=== PATIENT | female | born 1975 | race Caucasian/White ===

== ENCOUNTER 2017-11-20 07:47 | Outpatient (CLI) | payer BC | END 2017-11-20 07:48 | disposition home or self-care (01) | LOC: BICMAMMO 07:47 | PROVIDERS: ATTEND Advanced Practice Midwife | DX: Z12.31 Encounter for screening mammogram for malignant neoplasm of breast (principal) | CPT/HCPCS: 77063; 77067 ==

== ENCOUNTER 2018-12-12 06:37 | Outpatient (CLI) | payer BC ==
--- NOTE | 2018-12-12 09:03 | ULT ---
LEFT BREAST ULTRASOUND: HISTORY: Abnormal screening mammogram of 12/06/2018 from an outside institution. FINDINGS: There is a 1.2 x 0.4 x 0.9 cm, reniform, hypoechoic, nonshadowing nodule with echogenic hilum, about 8 cm from the nipple, corresponding to the finding on the mammogram. No definite flow is demonstrate d in the hilum. This likely represents a lymph node. IMPRESSION: BI-RADS category 3-Probably benign finding. Six month follow-up left diagnostic mammogram and left b reast ultrasound should be performed. POS: OFF
== END 2018-12-12 06:38 | disposition home or self-care (01) ==
LOC: BICULT 06:37
PROVIDERS: ATTEND Advanced Practice Midwife
DX: N63.20 Unspecified lump in the left breast, unspecified quadrant (principal)

== ENCOUNTER 2019-06-12 07:56 | Outpatient (CLI) | payer BC ==
--- NOTE | 2019-06-12 08:47 | MMO ---
Left Breast MAMMO Unilat Diag [facility]DI LT+JUAN. CLINICAL HISTORY: Patient is 43 years old and is seen for follow-up at short-interval from prior study. The patient has no family history of breast cancer. The patient has no personal history of cancer. VIEWS: The views performed were: left craniocaudal with tomosynthesis; left mediolateral oblique with tomosynthesis; and left mediolateral with tomosynthesis. FILMS COMPARED: The present examination has been compared to prior imaging studies performed at [facility] on 12/06/2018, and at [facility] on 11/20/2017, 12/12/2018 and 06/12/2019. This study has been interpreted with the assistance of computer-aided detection. MAMMOGRAM FINDINGS: The breast is heterogeneously dense, which could obscure a lesion on mammography. Left upper outer breast nodule is stable. IMPRESSION: FINDING IN THE LEFT BREAST IS PROBABLY BENIGN. FOLLOW-UP IN 6 MONTHS IS RECOMMENDED. THE RESULTS OF THIS EXAM WERE SENT TO THE PATIENT. ACR BI-RADS Category 3 - Probably benign finding - short interval follow-up suggested. [facility] will notify the patient of the need for additional imaging services. MAMMOGRAPHY NOTE: 1. A negative mammogram report should not delay a biopsy if a dominant of clinically suspicious mass is present. 2. Approximately 10% to 15% of breast cancers are not detected by mammography. 3. Adenosis and dense breasts may obscure an underlying neoplasm. Reported by: GALINA STEVE MD Electonically Signed: [id number]
--- NOTE | 2019-06-12 09:16 | ULT ---
LEFT BREAST ULTRASOUND: Date: 06/12/2019 HISTORY: Follow-up left breast mass. FINDINGS: Comparison made with the left breast ultrasound of 12/12/2018 and the mammograms from today. The 1.3 x 0.4 x 0.8 cm reniform, hypoechoic, nonshadowing nodule with echogenic hilum about 8 cm from the nipple, corresponding to the finding on the mammogram, is stable. No definite flow is seen in th e hilum. This likely represents a lymph node. IMPRESSION: BI-RADS Category 3 - Probably benign findings. 6 month follow-up left diagnostic mammogram and left b reast ultrasound should be performed. The facility will notify patient of need for additional imaging services.
== END 2019-06-12 07:57 | disposition home or self-care (01) ==
LOC: BICMAMMO 07:56
PROVIDERS: ATTEND Advanced Practice Midwife
DX: R92.8 Other abnormal and inconclusive findings on diagnostic imaging of breast (principal)
CPT/HCPCS: G0279

== ENCOUNTER 2020-03-05 08:06 | Outpatient (CLI) | payer BC ==
--- NOTE | 2020-03-05 09:11 | MMO ---
Bilateral MAMMO Bilat Diag DDI+JUAN. CLINICAL HISTORY: Patient is 44 years old and is seen for diagnostic exam. The patient has no family history of breast cancer. The patient has no personal history of cancer. VIEWS: The views performed were: bilateral craniocaudal with tomosynthesis; bilateral mediolateral oblique with tomosynthesis; and bilateral mediolateral with tomosynthesis. FILMS COMPARED: The present examination has been compared to prior imaging studies performed at [facility] on 12/12/2018, 06/12/2019 and 03/05/2020. This study has been interpreted with the assistance of computer-aided detection. MAMMOGRAM FINDINGS: The breasts are heterogeneously dense, which could obscure a lesion on mammography. Finding 1: There is a stable lobular mass measuring 8 x 19 x 16 mm with circumscribed margins and associated milk of calcium calcifications seen in the posterior upper-outer region of the right breast. Finding 2: There are stable benign appearing calcifications seen in both breasts. Finding 3: There are stable benign appearing densities seen in both breasts. There are no suspicious masses, suspicious calcifications, or new areas of architectural distortion. IMPRESSION: THERE IS NO MAMMOGRAPHIC EVIDENCE OF MALIGNANCY. A ROUTINE FOLLOW-UP MAMMOGRAM IN 1 YEAR IS RECOMMENDED. THE RESULTS OF THIS EXAM WERE SENT TO THE PATIENT. ACR BI-RADS Category 2 - Benign finding MAMMOGRAPHY NOTE: 1. A negative mammogram report should not delay a biopsy if a dominant of clinically suspicious mass is present. 2. Approximately 10% to 15% of breast cancers are not detected by mammography. 3. Adenosis and dense breasts may obscure an underlying neoplasm. Reported by: SHAYLEE ADAMES MD Electonically Signed: [id number]
--- NOTE | 2020-03-05 11:04 | ULT ---
LEFT BREAST ULTRASOUND: Date: 03/05/2020 HISTORY: Follow-up nodular area in the left breast upper outer aspect. COMPARISON: Prior ultrasound examinations 12/02/2018 and 06/12/2019. Diagnostic mammogram today, 03/05/2020. FINDINGS: There is a somewhat bilobed, hypoechoic mass in the upper outer aspect of the left breast at 2 o'cloc k position 8.0 cm from the nipple. This is a somewhat bilobed hypoechoic mass which could represent a complicated cyst or a lymph node. Given the milk of calcium associated with this on the mammogram, I would favor this being a complicated cyst. It measures approximately 0.5 x 1.3 x 1.5 cm in size. IMPRESSION: Stable bilobed hypoechoic mass, unchanged dating back to 12/12/2018. Mammogram is stable. BI-RADS Category 2 - Benign findings. Continue routine annual screening mammograms. POS: OFF
== END 2020-03-05 08:07 | disposition home or self-care (01) ==
LOC: BICMAMMO 08:06
PROVIDERS: ATTEND Advanced Practice Midwife
DX: R92.8 Other abnormal and inconclusive findings on diagnostic imaging of breast (principal); N63.21 Unspecified lump in the left breast, upper outer quadrant
CPT/HCPCS: 77066; G0279